=== PATIENT | male | born 1975 | race African-American/Black ===

== ENCOUNTER 2017-07-07 21:24 | Emergency (ER) | payer OTHER ==
[~2017-07-07] VITALS: Ht 172.7 cm; Wt 87.0 kg
[2017-07-07 21:38] VITALS: BP 130/79; PULSE 110; RESP 16; TEMP 99.9; O2SAT 97
[2017-07-07] MEDS ORDERED: SODIUM CHLOR 0.9% 1000 ML INJ 1,000 ML IV ONE (21:46)
--- NOTE | 2017-07-07 21:50 | PD ---
HPI Chief Complaint: Altered Mental Status Time Seen by Provider: 21:39 Travel History International Travel<30 days: No Contact w/Intl Traveler<30days: No Traveled to known affect area: No History of Present Illness HPI This is a 42-year-old male who presents via EMS for evaluation of syncopal event. The patient reports that he was at a bar sitting in a bar stool after drinking 5 beers. He became lightheaded and apparently passed out. He did not fall out of the bar stool as someone caught him before he fell. Per EMS his blood pressure was initially noted to be 70/40 but then it rapidly improved to 120/70. The patient is now awake and alert and feels fine. He has had some cough and congestion since yesterday as well as some right knee pain which spontaneously began this morning when he woke up. He denies any trauma to the knee. It is an aching pain that is worse with movement. He reports history of gouty arthritis flareups in his feet in the past but never in his knee. He denies chest pain, shortness of breath, palpitations, nausea or vomiting, abdominal pain. No other complaints. [facility] Past Medical History Medical History: Denies Significant Hx Tetanus Vaccination: Never Vaccinated Influenza Vaccination: No Past Surgical History Surgical History: No Previous Surgery Social History Alcohol Use: Yes (beer) Tobacco Use: Yes (vap) Substance Use: No Allergies-Medications (Allergen,Severity, Reaction): Coded Allergies: No Known Allergies (Verified Allergy, Unknown, 07/07/17) Reported Meds & Prescriptions Reported Meds & Active Scripts Active Indomethacin 50 Mg Cap 50 Mg PO TID 7 Days Take with food, milk, or antacids to decrease stomach adverse effects. Review of Systems Except as stated in HPI: all other systems reviewed are Neg Physical Exam Narrative GENERAL: Well-developed well-nourished male in no acute distress SKIN: Warm and dry. HEAD: Atraumatic. Normocephalic. EYES: Pupils equal and round. No scleral icterus. No injection or drainage. ENT: No nasal bleeding or discharge. Mucous membranes pink and moist. NECK: Trachea midline. No JVD. CARDIOVASCULAR: Regular rate and rhythm. No murmur appreciated. RESPIRATORY: No accessory muscle use. Clear to auscultation. Breath sounds equal bilaterally. GASTROINTESTINAL: Abdomen soft, non-tender, nondistended. Hepatic and splenic margins not palpable. MUSCULOSKELETAL: Right knee effusion is noted. The knee joint is not erythematous. He has pain with passive range of motion in the right knee with passive range of motion preserved. NEUROLOGICAL: Awake and alert. No obvious cranial nerve deficits. Motor grossly within normal limits. Normal speech. PSYCHIATRIC: Appropriate mood and affect; insight and judgment normal. Data Data Last Documented VS Vital Signs Date Time Temp Pulse Resp B/P (MAP) Pulse Ox O2 Delivery O2 Flow Rate FiO2 07/07/17 22:50 07/07/17 22:48 98 105 109 07/07/17 21:57 97 Room Air 07/07/17 21:43 18 07/07/17 21:38 99.9 Orders Orders Electrocardiogram (07/07/17 21:46) Basic Metabolic Panel (Bmp) (07/07/17 21:46) Complete Blood Count With Diff (07/07/17 21:46) Magnesium (Mg) (07/07/17 21:46) Ckmb (Isoenzyme) Profile (07/07/17 21:46) Troponin I (07/07/17 21:46) Chest, Single Ap (07/07/17 21:46) Blood Glucose (07/07/17 21:46) Ecg Monitoring (07/07/17 21:46) Iv Access Insert/Monitor (07/07/17 21:46) Oximetry (07/07/17 21:46) Sodium Chloride 0.9% Flush (Ns Flush) (07/07/17 22:00) Sodium Chlor 0.9% 1000 Ml Inj (Ns 1000 M (07/07/17 21:46) Influenzae A/B Antigen (07/07/17 21:46) Knee, Complete (4vws) (07/07/17 ) Uric Acid (07/07/17 21:46) CKMB (07/07/17 21:50) CKMB% (07/07/17 21:50) Orthostatic Vital Signs (07/07/17 22:39) Ketorolac Inj (Toradol Inj) (07/07/17 23:00) Ed Discharge Order (07/07/17 22:54) Labs Laboratory Tests Test 07/07/17 21:50 White Blood Count 11.8 TH/MM3 Red Blood Count 3.98 MIL/MM3 Hemoglobin 12.7 GM/DL Hematocrit 38.9 % Mean Corpuscular Volume 97.6 FL Mean Corpuscular Hemoglobin 32.0 PG Mean Corpuscular Hemoglobin Concent 32.8 % Red Cell Distribution Width 13.8 % Platelet Count 180 TH/MM3 Mean Platelet Volume 9.4 FL Neutrophils (%) (Auto) 81.1 % Lymphocytes (%) (Auto) 10.3 % Monocytes (%) (Auto) 7.2 % Eosinophils (%) (Auto) 1.1 % Basophils (%) (Auto) 0.3 % Neutrophils # (Auto) 9.5 TH/MM3 Lymphocytes # (Auto) 1.2 TH/MM3 Monocytes # (Auto) 0.8 TH/MM3 Eosinophils # (Auto) 0.1 TH/MM3 Basophils # (Auto) 0.0 TH/MM3 CBC Comment DIFF FINAL Differential Comment Blood Urea Nitrogen 9 MG/DL Creatinine 1.11 MG/DL Random Glucose 98 MG/DL Calcium Level 8.8 MG/DL Magnesium Level 2.1 MG/DL Uric Acid 9.7 MG/DL Sodium Level 138 MEQ/L Potassium Level 3.7 MEQ/L Chloride Level 102 MEQ/L Carbon Dioxide Level 26.4 MEQ/L Anion Gap 10 MEQ/L Estimat Glomerular Filtration Rate 72 ML/MIN Total Creatine Kinase 242 U/L Creatine Kinase MB 1.2 NG/ML Troponin I LESS THAN 0.02 NG/ML MDM Medical Decision Making Medical Screen Exam Complete: Yes Emergency Medical Condition: Yes Medical Record Reviewed: Yes Differential Diagnosis Orthostatic hypotension, vasovagal syncope, dehydration, electrolyte abnormality , arrhythmia, hypoglycemia, gouty arthritis, septic arthritis, influenza, bronchitis, pneumonia Narrative Course The patient was placed on ECG monitoring and pulse oximetry. A 12-lead EKG has been obtained. The patient was given IV fluids. Plan is for basic lab work, chest x-ray, right knee x-ray. Influenza antigen test has been ordered. The patient's lab work has been reviewed. The WBC count is 11.8 with 81% neutrophils. Uric acid is elevated at 9.7. He has a right knee effusion on x- ray and clinically my suspicion is Urethritis. Furthermore he has no evidence of gonococcal illness as he denies dysuria, urethral discharge. Upon reexamination the patient feels improved. His orthostatic vital signs are essentially unremarkable with no change in symptomology while standing. The patient be given Toradol for his right knee pain and he will be discharged with indomethacin. Discussed signs and symptoms of septic arthritis that would warrant returning to the emergency room. He is stable for discharge. Diagnosis Primary Impression: Syncope Additional Impression: Inflammatory arthritis Additional Instructions: Medication as prescribed. Follow-up with primary care physician. Return for any acutely new or worsening symptoms such as worsening right knee pain and swelling, fevers. Med/Other Pt SpecificInfo: Prescription(s) given Scripts Indomethacin (Indomethacin) 50 Mg Cap 50 MG PO TID for 7 Days, CAP 0 Refills Take with food, milk, or antacids to decrease stomach adverse effects. Prov: Carson Gonzales MD 07/07/17 Disposition: 01 DISCHARGE HOME Condition: Stable Matthew Marina Jul 07, 2017 21:50
[2017-07-07 21:57] VITALS: O2SAT 97
[2017-07-07] MEDS ORDERED: SODIUM CHLORIDE 0.9% FLUSH 10 ML FLUSH IVF PRN (22:00)
[2017-07-07 22:10] LABS: AUTOMATED NEUTROPHIL # 9.5 TH/MM3 (1.8-7.7); BASOPHIL % 0.3 % (0.0-2.0); EOSINOPHIL # 0.1 TH/MM3 (0-0.4); EOSINOPHIL % 1.1 % (0.0-4.0); HEMATOCRIT 38.9 % (39.0-51.0); HEMOGLOBIN 12.7 GM/DL (13.0-17.0); LYMPH % 10.3 % (9.0-44.0); LYMPHOCYTE # 1.2 TH/MM3 (1.0-4.8); MEAN CELL VOLUME 97.6 FL (80.0-100.0); MEAN CORPUSCULAR HGB CONC 32.8 % (32.0-36.0); MEAN PLATELET VOLUME 9.4 FL (7.0-11.0); MONO % 7.2 % (0.0-8.0); MONOCYTE # 0.8 TH/MM3 (0-0.9); NEUT % 81.1 % (16.0-70.0); PLATELET COUNT 180 TH/MM3 (150-450); RED BLOOD COUNT 3.98 MIL/MM3 (4.50-5.90); RED CELL DISTRIBUTION WIDTH 13.8 % (11.6-17.2); WHITE BLOOD COUNT 11.8 TH/MM3 (4.0-11.0)
--- NOTE | 2017-07-07 22:27 | RADRPT ---
EXAM DATE/TIME: 07/07/2017 22:10 [facility] COMPARISON: No previous studies available for comparison. INDICATIONS : Patient passed out. Altered mental status- no chest complaints. General weakness. MEDICAL HISTORY : None. SURGICAL HISTORY : None. ENCOUNTER: Initial ACUITY: 1 day PAIN SCORE: 0/10 LOCATION: Bilateral chest FINDINGS: A single view of the chest demonstrates the lungs to be symmetrically aerated without evidence of mas s, infiltrate or effusion. The cardiomediastinal contours are unremarkable. Osseous structures are intact. CONCLUSION: No acute disease. Issac Tineo MD on July 07, 2017 at 22:25 Board Certified Radiologist. This report was verified electronically.
--- NOTE | 2017-07-07 22:28 | RADRPT ---
EXAM DATE/TIME: 07/07/2017 22:04 [facility] COMPARISON: No previous studies available for comparison. INDICATIONS : Patient passed out. Altered mental status- no chest complaints. General weakness. MEDICAL HISTORY : None. SURGICAL HISTORY : None. ENCOUNTER: Initial ACUITY: 1 day PAIN SCORE: 7/10 LOCATION: Right Knee. FINDINGS: Moderate knee joint effusion. No fracture or dislocation. Bone density normal. CONCLUSION: Effusion. Issac Tineo MD on July 07, 2017 at 22:25 Board Certified Radiologist. This report was verified electronically.
[2017-07-07 22:29] LABS: BICARBONATE 26.4 MEQ/L (21.0-32.0); BLOOD UREA NITROGEN 9 MG/DL (7-18); CALCIUM 8.8 MG/DL (8.5-10.1); CHLORIDE 102 MEQ/L (98-107); CREATININE 1.11 MG/DL (0.60-1.30); GLOMERULAR FILTRATION RATE 72 ML/MIN (>89); GLUCOSE,RANDOM 98 MG/DL (74-106); MAGNESIUM 2.1 MG/DL (1.5-2.5); SODIUM (NA) 138 MEQ/L (136-145)
[2017-07-07 22:32] LABS: TROPONIN I LESS THAN 0.02 NG/ML (0.02-0.05)
[2017-07-07 22:48] VITALS: BP_SYST 121; BP_SYST 133; BP_SYST 137; BP_DIAS 76; BP_DIAS 82; BP_DIAS 84
[2017-07-07] MEDS ORDERED: INDO50CA PO (22:48)
[2017-07-07] MEDS ORDERED: KETOROLAC TROMETHAMINE 30 MG/ML (IVP) VIAL IV PUSH ONE (23:00)
--- NOTE | 2017-07-08 22:28 | EKG ---
Date Performed: 07/07/2017 Time Performed: 21:47:24 PTAGE: 42 years EKG: SINUS TACHYCARDIA ABNORMAL RHYTHM ECG NO PREVIOUS TRACING DOCTOR: Douglas Kumar Interpretating Date/Time 07/08/2017 22:27:21
== END 2017-07-07 23:32 | disposition home or self-care (01) ==
LOC: NEPE 21:24
DX: R55 Syncope and collapse (principal); M06.4 Inflammatory polyarthropathy; M25.561 Pain in right knee; R05 Cough; M10.9 Gout, unspecified; M25.461 Effusion, right knee; F17.290 Nicotine dependence, other tobacco product, uncomplicated
CPT/HCPCS: 71045; 73564; 80048; 82550; 82552; 83735; 84484; 84550; 85025; 87804; 93005; 96361; 96374; 99285; J1885; J7030

== ENCOUNTER 2017-07-19 17:36 | Emergency (ER) | payer OTHER ==
[~2017-07-19] VITALS: Ht 172.7 cm; Wt 87.3 kg
[~2017-07-19 17:36] MED LIST: INDO50CA PO
[2017-07-19 17:38] VITALS: BP 159/102; PULSE 110; RESP 18; TEMP 98.7; O2SAT 100
--- NOTE | 2017-07-19 18:13 | RADRPT ---
EXAM DATE/TIME: 07/19/2017 18:00 [facility] COMPARISON: CHEST SINGLE AP, July 07, 2017, 22:10. INDICATIONS : Chest pain. Left arm numbness. MEDICAL HISTORY : Hypertension. SURGICAL HISTORY : None. ENCOUNTER: Initial ACUITY: 1 day PAIN SCORE: 10/10 LOCATION: Bilateral chest FINDINGS: PA and lateral views of the chest demonstrate the lungs to be symmetrically aerated without evidence of mass, infiltrate or effusion. The cardiomediastinal contours are unremarkable. Osseous structure s are intact. CONCLUSION: No acute disease. Darryl Hurt MD on July 19, 2017 at 18:10 Board Certified Radiologist. This report was verified electronically.
[2017-07-19 18:14] VITALS: BP 152/99; PULSE 89; RESP 18; O2SAT 95
[2017-07-19 19:25] LABS: AUTOMATED NEUTROPHIL # 4.1 TH/MM3 (1.8-7.7); BASOPHIL # 0.1 TH/MM3 (0-0.2); EOSINOPHIL # 0.1 TH/MM3 (0-0.4); HEMATOCRIT 38.2 % (39.0-51.0); HEMOGLOBIN 12.9 GM/DL (13.0-17.0); LYMPH % 24.5 % (9.0-44.0); LYMPHOCYTE # 1.6 TH/MM3 (1.0-4.8); MEAN CELL VOLUME 97.2 FL (80.0-100.0); MEAN CORPUSCULAR HEMOGLOBIN 32.8 PG (27.0-34.0); MEAN CORPUSCULAR HGB CONC 33.8 % (32.0-36.0); MEAN PLATELET VOLUME 9.6 FL (7.0-11.0); MONO % 10.5 % (0.0-8.0); MONOCYTE # 0.7 TH/MM3 (0-0.9); PLATELET COUNT 311 TH/MM3 (150-450); RED BLOOD COUNT 3.93 MIL/MM3 (4.50-5.90); RED CELL DISTRIBUTION WIDTH 13.5 % (11.6-17.2); WHITE BLOOD COUNT 6.5 TH/MM3 (4.0-11.0)
[2017-07-19 19:30] VITALS: BP 150/97; PULSE 88; RESP 18; O2SAT 96
[2017-07-19] MEDS ORDERED: cloNIDine HCL 0.1 MG TAB PO ONE (19:30)
[2017-07-19 19:51] LABS: PROTHROMBIN TIME - PATIENT 10.3 SEC (9.8-11.6)
--- NOTE | 2017-07-19 19:57 | RADRPT ---
EXAM DATE/TIME: 07/19/2017 19:38 [facility] COMPARISON: No previous studies available for comparison. INDICATIONS : Left arm numbness and dizziness. RADIATION DOSE: 56.35 CTDIvol (mGy) MEDICAL HISTORY : Hypertension. SURGICAL HISTORY : None. ENCOUNTER: Initial ACUITY: 1 day PAIN SCALE: 4/10 LOCATION: Bilateral cranial TECHNIQUE: Multiple contiguous axial images were obtained of the head. Using automated exposure control and adj ustment of the mA and/or kV according to patient size, radiation dose was kept as low as reasonably a chievable to obtain optimal diagnostic quality images. DICOM format image data is available electro nically for review and comparison. FINDINGS: CEREBRUM: The ventricles are normal for age. No evidence of midline shift, mass lesion, hemorrhage or acute in farction. No extra-axial fluid collections are seen. POSTERIOR FOSSA: The cerebellum and brainstem are intact. The 4th ventricle is midline. The cerebellopontine angle i s unremarkable. EXTRACRANIAL: The visualized portion of the orbits is intact. SKULL: The calvaria is intact. No evidence of skull fracture. CONCLUSION: Normal examination. Hugo Machuca Jr., MD on July 19, 2017 at 19:54 Board Certified Radiologist. This report was verified electronically.
[2017-07-19 20:00] LABS: ALBUMIN 3.6 GM/DL (3.4-5.0); ALKALINE PHOSPHATASE 116 U/L (45-117); ALT (GPT) 28 U/L (12-78); AST (GOT) 29 U/L (15-37); BICARBONATE 26.4 MEQ/L (21.0-32.0); BLOOD UREA NITROGEN 15 MG/DL (7-18); CALCIUM 8.9 MG/DL (8.5-10.1); CHLORIDE 105 MEQ/L (98-107); CREATININE 1.42 MG/DL (0.60-1.30); GLOMERULAR FILTRATION RATE 66 ML/MIN (>89); GLUCOSE,RANDOM 88 MG/DL (74-106); MAGNESIUM 2.1 MG/DL (1.5-2.5); SODIUM (NA) 140 MEQ/L (136-145); TOTAL BILIRUBIN ADULT 0.5 MG/DL (0.2-1.0); TOTAL PROTEIN 8.1 GM/DL (6.4-8.2); TROPONIN I LESS THAN 0.02 NG/ML (0.02-0.05)
[2017-07-19 20:30] VITALS: BP 136/93; PULSE 84; RESP 18; O2SAT 96
[2017-07-19 21:27] VITALS: BP_SYST 124; BP_SYST 136; BP_DIAS 83; BP_DIAS 93; PULSE 82; RESP 18; O2SAT 97
[2017-07-19] MEDS ORDERED: LISI10TA3 PO (21:35)
--- NOTE | 2017-07-19 21:35 | PD ---
HPI . Numbness/tingling Chief Complaint: Numbness/Tingling Time Seen by Provider: 19:11 Travel History International Travel<30 days: No Contact w/Intl Traveler<30days: No Traveled to known affect area: No History of Present Illness HPI 42-year-old male with no sitting past medical history, is not under doctor's care, presents with having elevated blood pressure diffuse mild headache, feeling tired having tingling in his left arm. Patient has had similar symptoms recurrent over the past several weeks to months. Patient presents at the behest of his significant other. Patient denies any other visual changes, focal weakness numbness or tingling other than noted above, has no seizure activity or incontinence. Patient also denies chest pain, shortness of breath, orthopnea, change in exercise tolerance lately. Patient also denies any confounding travel or sedentary. Comment of denies leg pain or leg swelling. PFSH Past Medical History Narrative Medical Past medical history reviewed. Social history reviewed, patient notes drinking several beers daily. Patient has no aspirations towards quitting, takes roughly the same amount in daily. Medical History: Denies Significant Hx Tetanus Vaccination: > 5 Years Influenza Vaccination: No Past Surgical History Surgical History: No Previous Surgery Social History Alcohol Use: Yes (beer) Tobacco Use: Yes (vap) Substance Use: No Allergies-Medications (Allergen,Severity, Reaction): Coded Allergies: No Known Allergies (Verified Allergy, Unknown, 07/19/17) Reported Meds & Prescriptions Reported Meds & Active Scripts Active No Active Prescriptions or Reported Medications Narrative Medication Allergies medications reviewed Review of Systems Except as stated in HPI: all other systems reviewed are Neg General / Constitutional: No: Fever Eyes: No: Visual changes HENT: Positive: Headaches Cardiovascular: No: Chest Pain or Discomfort Respiratory: No: Shortness of Breath Gastrointestinal: No: Abdominal Pain Genitourinary: No: Dysuria Musculoskeletal: No: Pain Skin: No Rash Neurologic: Positive: Headache, Paresthesia, No: Weakness, Dizziness, Syncope, Coordination Problem, Ataxia, Change in Mentation, Slurred Speech, Incontinence , Sensory Disturbance Psychiatric: No: Depression Endocrine: No: Polydipsia Hematologic/Lymphatic: No: Easy Bruising Physical Exam Narrative GENERAL: Awake alert, oriented 3, patient appears uncomfortable but no acute distress SKIN: Warm and dry. Color normal diaphysis sinus pallor HEAD: Atraumatic. Normocephalic. EYES: Pupils equal and round. No scleral icterus. No injection or drainage. Difficult funduscopic exam secondary to poor patient compliance ENT: No nasal bleeding or discharge. Mucous membranes pink and moist. NECK: Trachea midline. No JVD. Supple full range of motion no bruits CARDIOVASCULAR: Regular rate and rhythm. S1-S2 no murmurs rubs gallops RESPIRATORY: No accessory muscle use. Clear to auscultation. Breath sounds equal bilaterally. GASTROINTESTINAL: Abdomen soft, non-tender, nondistended. Hepatic and splenic margins not palpable. MUSCULOSKELETAL: Extremities without clubbing, cyanosis, or edema. No obvious deformities. NEUROLOGICAL: Awake and alert. No obvious cranial nerve deficits. Motor grossly within normal limits. Five out of 5 muscle strength in the arms and legs. Normal speech. PSYCHIATRIC: Appropriate mood and affect; insight and judgment normal. Data Data Last Documented VS Vital Signs Date Time Temp Pulse Resp B/P (MAP) Pulse Ox O2 Delivery O2 Flow Rate FiO2 07/19/17 21:27 82 18 136/93 (107) 97 Room Air 07/19/17 17:38 98.7 Orders Orders Electrocardiogram (07/19/17 17:44) Ckmb (Isoenzyme) Profile (07/19/17 17:44) Complete Blood Count With Diff (07/19/17 17:44) Comprehensive Metabolic Panel (07/19/17 17:44) Magnesium (Mg) (07/19/17 17:44) Prothrombin Time / Inr (Pt) (07/19/17 17:44) Act Partial Throm Time (Ptt) (07/19/17 17:44) Troponin I (07/19/17 17:44) Chest, Pa & Lat (07/19/17 17:44) Clonidine (Catapres) (07/19/17 19:30) Ct Brain W/O Iv Contrast(Rout) (07/19/17 ) CKMB (07/19/17 18:10) CKMB% (07/19/17 18:10) Labs Laboratory Tests Test 07/19/17 18:10 White Blood Count 6.5 TH/MM3 Red Blood Count 3.93 MIL/MM3 Hemoglobin 12.9 GM/DL Hematocrit 38.2 % Mean Corpuscular Volume 97.2 FL Mean Corpuscular Hemoglobin 32.8 PG Mean Corpuscular Hemoglobin Concent 33.8 % Red Cell Distribution Width 13.5 % Platelet Count 311 TH/MM3 Mean Platelet Volume 9.6 FL Neutrophils (%) (Auto) 62.0 % Lymphocytes (%) (Auto) 24.5 % Monocytes (%) (Auto) 10.5 % Eosinophils (%) (Auto) 2.0 % Basophils (%) (Auto) 1.0 % Neutrophils # (Auto) 4.1 TH/MM3 Lymphocytes # (Auto) 1.6 TH/MM3 Monocytes # (Auto) 0.7 TH/MM3 Eosinophils # (Auto) 0.1 TH/MM3 Basophils # (Auto) 0.1 TH/MM3 CBC Comment DIFF FINAL Differential Comment Prothrombin Time 10.3 SEC Prothromb Time International Ratio 1.0 RATIO Activated Partial Thromboplast Time 29.4 SEC Blood Urea Nitrogen 15 MG/DL Creatinine 1.42 MG/DL Random Glucose 88 MG/DL Total Protein 8.1 GM/DL Albumin 3.6 GM/DL Calcium Level 8.9 MG/DL Magnesium Level 2.1 MG/DL Alkaline Phosphatase 116 U/L Aspartate Amino Transf (AST/SGOT) 29 U/L Alanine Aminotransferase (ALT/SGPT) 28 U/L Total Bilirubin 0.5 MG/DL Sodium Level 140 MEQ/L Potassium Level 3.8 MEQ/L Chloride Level 105 MEQ/L Carbon Dioxide Level 26.4 MEQ/L Anion Gap 9 MEQ/L Estimat Glomerular Filtration Rate 66 ML/MIN Total Creatine Kinase 295 U/L Creatine Kinase MB 1.2 NG/ML Troponin I LESS THAN 0.02 NG/ML MDM Medical Decision Making Medical Screen Exam Complete: Yes Emergency Medical Condition: Yes Medical Record Reviewed: Yes Differential Diagnosis HTN urgency, CVA/TIA Narrative Course Patient treated with clonidine 0.1 mg orally, his blood pressure improved, patient's headache symptoms end paresthesias in the left upper extremity resolved. CT head normal. Patient-doctor examination reviewed, no significant abnormalities. Prescription written for lisinopril, patient urged to follow-up with medical clinic, follow-up numbers given. Diagnosis Primary Impression: Hypertensive urgency Patient Instructions: General Instructions, Hypertension (ED) Additional Instructions: Lisinopril 10 mg daily. Follow-up with medical clinic. Return for worsening Scripts Lisinopril (Lisinopril) 10 Mg Tab 10 MG PO DAILY, #30 TAB 0 Refills Prov: Kle Garcia MD 07/19/17 Disposition: 01 DISCHARGE HOME Condition: Stable Kel Garcia MD Jul 19, 2017 21:35
--- NOTE | 2017-07-20 10:10 | EKG ---
Date Performed: 07/19/2017 Time Performed: 17:54:48 PTAGE: 42 years EKG: Sinus rhythm NORMAL ECG PREVIOUS TRACING : 07/07/2017 21.47 DOCTOR: Gian Taylor Interpretating Date/Time 07/20/2017 10:08:30
== END 2017-07-19 21:44 | disposition home or self-care (01) ==
LOC: NEPC 17:36
DX: I16.0 Hypertensive urgency (principal); R07.9 Chest pain, unspecified; Z72.0 Tobacco use
CPT/HCPCS: 70450; 71046; 80053; 82550; 82552; 83735; 84484; 85025; 85610; 85730; 93005